=== PATIENT | male | born 1935 | race Caucasian/White ===

== ENCOUNTER 2022-03-10 07:39 | Outpatient (CLI) | payer MEDICARE ==
[2022-03-10] MEDS ORDERED: Iopamidol 300 61% 100 ML VIAL FS ONE (14:07)
== END 2022-03-10 07:40 | disposition home or self-care (01) ==
LOC: CSHCT 07:39
PROVIDERS: ATTEND Specialist
DX: N28.89 Other specified disorders of kidney and ureter (principal); N28.1 Cyst of kidney, acquired; K57.30 Diverticulosis of large intestine without perforation or abscess without bleeding
CPT/HCPCS: 74170; 82565; Q9967